=== PATIENT | female | born 1975 | race African-American/Black ===

== ENCOUNTER → 2016-08-27 | Outpatient (CLI) | payer OTHER ==
[~2016-08-27] MED LIST: MINOCYCLINE PO; NO MEDICATIONS
--- NOTE | ~2016-08-27 | US128 ---
[id number] [facility] [address] [place], [place] [address] [id number] O MR#: [id number] Acc #: [id number] NAME: NIK WILLS : 1975 SEX: F STUDY DATE/TIME: 08/27/2016 15:10 UNIT: [facility]US ROOM: STUDY DESCRIPTION: US Thyroid Attending Physician: Tommy Sanches M.D. Referring Physician: Tommy Sanches M.D. Ordering Physician: Tommy Sanches M.D. Primary Care Physician: Zach Fitzgerald M.D. MEDICAL IMAGING REPORT This report is preliminary unless electronic signature is present EXAM Ultrasound of the thyroid gland 08/27/2016 INDICATIONS Enlarged thyroid gland. This was felt by the patient's doctor about a week ago. TECHNIQUE Kelly scale and color Doppler sonographic images were obtained through the thyroid gland. FINDINGS The thyroid gland measures within normal size limits. Right lobe measures 1.9 x 4.2 x 0.9 cm, left lobe measures 1.7 x 3.8 x 1.0 cm. Isthmus measures about 2 mm in thickness. Overall thyroid gland is homogeneous in echotexture with no focal nodules seen. IMPRESSION Normal thyroid ultrasound. Dictated by... Marissa Rollins M.D. THIS IS AN ELECTRONICALLY VERIFIED REPORT Marissa Rollins M.D. at 08/29/2016 4:40 PM EMILY/derrell TD: 08/28/2016 16:34 JOB #: [id number] MEDICAL IMAGING REPORT Page 1 of 1 COPY
== END | disposition home or self-care (01) ==
LOC: CGUS 14:39
DX: E04.9 Nontoxic goiter, unspecified (principal)
CPT/HCPCS: 76536

== ENCOUNTER → 2016-09-04 | Outpatient (CLI) | payer OTHER ==
--- NOTE | ~2016-09-04 | US98 ---
[facility] A Service of [facility] RADIOLOGY TEXT RESULTS PATIENT: NIK WILLS LOCATION: [facility] : [birth year] UNIT #: [id number] AGE: [address]: SAULO RESTREPO MD SEX: F ORDER DR: [id number] [facility] [address] [place], [place] [address] [id number] O MR#: [id number] Acc #: [id number] NAME: NIK WILLS : 1975 SEX: F STUDY DATE/TIME: 09/04/2016 14:40 UNIT: [facility] ROOM: STUDY DESCRIPTION: US Pelvic Non-OB Complete Attending Physician: Saulo Restrepo Referring Physician: Saulo Restrepo Ordering Physician: [id number] Verónica Restrepo Primary Care Physician: Zach Fitzgerald M.D. MEDICAL IMAGING REPORT This report is preliminary unless electronic signature is present EXAM Transabdominal and transvaginal pelvic ultrasound 09/04/2016 HISTORY Heavy menses, status post use of delaying control patch beginning 3 months ago. Periods heavier since use. History of fibroid uterus. FINDINGS Transabdominal and transvaginal pelvic ultrasound was performed. Endovaginal ultrasound was performed for attempted better visualization of the adnexal structures. The bladder is normal in appearance. The uterus measures 5.7 cm craniocaudal x 5.1 cm AP x 7.3 cm transverse. The endometrial stripe measures 1.1 cm. There is a 5 mm calcification along the anterior aspect of the endometrial stripe in the uterine body which could represent a small calcified fibroid. The right ovary measures 2.1 cm x 3.1 cm x 1.8 cm and contains a complicated follicle containing abundant internal echoes measuring 2 cm x 1.6 cm x 1.9 cm probably representing a hemorrhagic follicle. The left ovary measured 2 cm x 2.1 cm x 1.6 cm. Color-flow Doppler images show normal blood flow to both ovaries. There is no adnexal mass. Minimal free fluid was seen in the pelvis. IMPRESSION 1. 5 mm calcification along the anterior aspect of the endometrial stripe could represent a small calcified fibroid. 2. 2 cm complicated follicle containing internal echoes on the right ovary may represent a hemorrhagic follicle. 3. Minimal free fluid in the pelvis. Dictated by... Dru Cabezas M.D. THIS IS AN ELECTRONICALLY VERIFIED REPORT [facility] A Service of [facility] RADIOLOGY TEXT RESULTS PATIENT: NIK WILLS LOCATION: [facility] : [birth year] UNIT #: [id number] AGE: [address]: SAULO RESTREPO MD SEX: F ORDER DR: Dru Cabezas M.D. at 09/06/2016 8:13 AM ARTUR/carolynn TD: 09/05/2016 11:40 JOB #: [id number] MEDICAL IMAGING REPORT Page 1 of 1 COPY
== END | disposition home or self-care (01) ==
LOC: CGUS 14:11
DX: N92.0 Excessive and frequent menstruation with regular cycle (principal); N85.8 Other specified noninflammatory disorders of uterus
CPT/HCPCS: 76830; 76856